=== PATIENT | male | born 1995 | race Caucasian/White ===

== ENCOUNTER 2022-02-28 11:42 | Emergency (ER) | payer OTHER, SELFPAY ==
--- NOTE | ~2022-02-28 | XR_ITS ---
XR knee RT min 4V DATE: 02/28/2022 13:13 INDICATION: Knee pain, starting yesterday, from [place] of stairs at work TECHNIQUE: 4 views COMPARISON: None FINDINGS: Moderate tricompartment osteoarthritis. No fracture or dislocation or joint effusion. No periosteal reaction or bone destruction. No radiopaq ue intra-articular loose body or chondrocalcinosis. IMPRESSION: Moderate tricompartment osteoarthritis Reviewed, dictated and finalized at location B. 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
[2022-02-28 12:24] VITALS: BP 125/74; PULSE 61; RESP 16; TEMP 36.6; O2SAT 100
--- NOTE | 2022-02-28 12:30 | ED.LOWEXIN ---
HPI - Extremity Injury (Lower) General Chief Complaint: Extremity Injury, Lower Stated Complaint: rt knee injury/work related Time Seen by Provider: 02/28/22 12:30 Source: patient Mode of arrival: ambulatory Limitations: no limitations History of Present Illness HPI Narrative: 26-year-old male presents with complaint of right knee pain for several days. Denies injury but feels that the pain is related to work. 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 Has not taking any [id number] medications to treat pain. ambulatory with steady gait. 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 All systems reviewed and negative except as noted above. Related Data Allergies Allergy/AdvReac Type Severity Reaction Status Date / Time No Known Allergies Allergy Verified 02/28/22 12:21 Review of Systems Review of Systems: CONSTITUTIONAL: Denies fever, chills, or sweats. EYES: Denies visual changes, redness, or discharge. ENT: Denies rhinorrhea, congestion, sore throat, or otalgia. CARDIOVASCULAR: Denies chest pain, palpitations, or edema. RESPIRATORY: Denies cough or dyspnea. GASTROINTESTINAL: Denies abdominal pain, nausea, vomiting, or diarrhea. GENITOURINARY: Denies dysuria or hematuria. SKIN: Denies rash or itching. MUSCULOSKELETAL: Reports right knee pain and swelling. NEUROLOGIC: Denies headache, numbness, or weakness. PSYCHIATRIC: Denies anxiety or depression. All other systems reviewed are negative, except as documented in HPI. PMFSH Comments At time of signature, agree with nursing past medical, surgical, social and family history. There is no relevant family history pertinent to the presenting complaint. Exam Narrative: GENERAL: This is a well-nourished, well-developed patient, in no apparent distress. HEAD: normocephalic, atraumatic. EYES: PERRL. Sclera clear/white. Vision is grossly intact. EARS: External ears normal NOSE: External nose normal NECK: Neck supple, non-tender without lymphadenopathy, masses or thyromegaly. CARDIOVASCULAR: Regular rate and rhythm without murmurs, gallops, or rubs. RESPIRATORY: Clear to auscultation. Breath sounds equal bilaterally. No wheezes, rales, or rhonchi. SKIN: warm, Dry, intact with no suspicious lesions or rash, good texture and turgor. NEURO: awake, alert, and oriented to person, place and time. There were no obvious focal neurologic abnormalities. EXTREMITIES: Generalized tenderness right anterior knee with mild swelling. No instability. Course Course Level of Care: Express Care Visit Vital Signs Vital signs: Vital Signs Temperature 36.6 C 02/28/22 12:24 Pulse Rate 61 02/28/22 12:24 Respiratory Rate 16 02/28/22 12:24 Blood Pressure 125/74 02/28/22 12:24 Pulse Oximetry 100 02/28/22 12:24 Oxygen Delivery Room Air 02/28/22 12:24 Temperature 36.6 C 02/28/22 12:24 Pulse Rate 61 02/28/22 12:24 Respiratory Rate 16 02/28/22 12:24 Blood Pressure 125/74 02/28/22 12:24 Pulse Oximetry 100 02/28/22 12:24 Oxygen Delivery Room Air 02/28/22 12:24 Reviewed MDM - Extremity Injury (Lower) MDM Narrative Medical decision making narrative: Patient is aware of diagnosis, understands and agrees to treatment plan. Anticipatory guidance given. Patient agrees to follow-up as directed and is aware of reasons to seek care at the emergency department. Portions of this record may have been created with voice recognition software discussed x-ray results with patient. Refer to primary care physician To establish primary care and further treat his right knee pain. Patient requesting Orthopedic referral. States that he needs it if he has a workmen comp case for his knee pain. Imaging Data My impression: Agree with radiologist Radiologist's impression: IMPRESSION: Mod
== END 2022-02-28 13:36 | disposition home or self-care (01) ==
PROVIDERS: Emergency Provider Nurse Practitioner Family
DX: M17.11 Unilateral primary osteoarthritis, right knee (principal)
CPT/HCPCS: 73564; 99203; G0463

== ENCOUNTER 2023-11-14 14:21 | Emergency (ER) | payer BC, SELFPAY ==
[2023-11-14 14:30] VITALS: BP 143/91; PULSE 87; RESP 16; TEMP 36.4; O2SAT 99
--- NOTE | 2023-11-14 14:34 | ED.URI ---
HPI - URI/Sore Throat General Chief Complaint: Upper Respiratory Infection Stated Complaint: sore throat/ fever / headache Time Seen by Provider: 11/14/23 14:34 History of Present Illness HPI Narrative: 27-year-old male presented for complaint of sore throat and fever up to 102. Onset 2 days. Endorses associated chills and body aches. Denies nausea vomiting, diarrhea or lethargy. Endorses exposure to strep. Took ibuprofen today. Related Data Allergies Allergy/AdvReac Type Severity Reaction Status Date / Time No Known Allergies Allergy Verified 11/14/23 14:34 Review of Systems Review of Systems: CONSTITUTIONAL: reports body aches, fever, chills, or sweats. EYES: Denies visual changes, redness, or discharge. ENT: reports sore throat Denies rhinorrhea, congestion, or otalgia. CARDIOVASCULAR: Denies chest pain, palpitations, or edema. RESPIRATORY: Denies dyspnea. GASTROINTESTINAL: Denies abdominal pain, nausea, vomiting, or diarrhea. SKIN: Denies rash, itching, or wounds. MUSCULOSKELETAL: Denies back pain, joint pain NEUROLOGIC: Denies headache Exam Narrative: GENERAL: mildly Ill-appearing, no acute distress. EYES: conjunctivae clear ENT: Mucous membranes moist. Left TM pearly jimenez with normal light reflex; Right TM erythematous, intact; no tragal tenderness. Oropharynx severely erythematous Tonsils enlarged 2+ with exudate. No drooling, no hoarseness, no trismus, uvula midline. No tripod positioning, hot potato voice, or soft palate swelling. NECK: Supple. bilateral anterior cervical lymphadenopathy CHEST: Clear to auscultation, breath sounds equal. No respiratory distress, speaks in full sentences. HEART: Regular rate and rhythm. No murmur heard. SKIN: Warm, dry, no rash. NEURO: Alert and oriented x3. Course Course Emergency Course: Patient is aware of diagnosis, understands and agrees to treatment plan. Anticipatory guidance given. Patient agrees to follow-up as directed and is aware of reasons to seek care at the emergency department. Portions of this record may have been created with voice recognition software Level of Care: Express Care Visit MDM - URI/Sore Throat MDM Narrative Medical decision making narrative: POS strep result reviewed with pt. Advise supportive treatments. Patient is appropriate for outpatient treatment and follow-up. Differential Diagnosis Differential diagnosis: Likely upper respiratory infection, viral infection and pharyngitis Discharge Plan Discharge Clinical Impression: Strep pharyngitis Patient Disposition: Home, Self-Care Condition: Stable Instructions: Antibiotic Form, Strep Throat (ED) Additional Instructions: - Take the antibiotic as directed. Fever and sore throat typically resolve within one to three days. Most patients can return to work after 12 to 24 hours of antibiotic therapy, provided you are fever free and otherwise well. -Eat and drink things that are easy to swallow, like soft foods, cool liquids, tea with honey, or popsicles . -Salt water gargles and/or may use topical anesthetic ( Chloraseptic spray) or lozenges to relieve dryness or throat pain -Alternate Tylenol and ibuprofen as needed for pain and fever as directed. -Frequent hand washing or hand pump installation and servicer is one of the best ways to prevent spread of infection. Throw away the toothbrush after 24hours of antibiotic. -Follow up with primary care provider in 2-3 days if condition is not improving -Go to the ER if you have trouble breathing, cannot drink enough fluids, have muffled voice or drooling, difficulty opening your mouth, or severe swelling. Prescriptions: New amoxicillin 500 mg tablet 1,000 mg PO DAILY 10 Days Qty: 20 0RF Follow-up/Referrals: PHYSICIAN,EVENT SALES ASSISTANT [Primary Care Provider] - Stand Alone Forms: Work/School Release IP Time of Disposition: 14:41
[2023-11-14 14:37] LABS: EDSTREPNEGPOS1 Negative
== END 2023-11-14 14:43 | disposition home or self-care (01) ==
PROVIDERS: Emergency Provider Nurse Practitioner Family
DX: J02.0 Streptococcal pharyngitis (principal)
CPT/HCPCS: 87880; 99213; G0463

== ENCOUNTER 2024-04-04 11:15 | Emergency (ER) | payer OTHER, SELFPAY ==
[2024-04-04 11:23] VITALS: BP 147/75; PULSE 104; RESP 20; TEMP 37.8; O2SAT 95
[2024-04-04 11:47] LABS: EDCOVIDSCREEN Negative (Negative); EDINFLUASCREEN Negative (Negative); EDINFLUBSCREEN Negative (Negative)
--- NOTE | 2024-04-04 12:22 | ED_ITS ---
HPI - General Adult General Chief complaint: Upper Respiratory Infection Stated complaint: fever 101, body aches Source: patient Mode of arrival: ambulatory Limitations: no limitations History of Present Illness HPI narrative: Patient presents for evaluation of a fever since midnight. He denies any chills, nausea, vomiting, diarrhea, cough, wounds, open lesions, urinary symptoms, shortness of breath, otalgia or sore throat. His girlfriend and child both have an ear infection. He is not taking any medication to assist with the symptoms Related Data Allergies Allergy/AdvReac Type Severity Reaction Status Date / Time bee venom protein (honey bee) Allergy Unknown Unknown Verified 04/04/24 11:30 Review of Systems Review of Systems: CONSTITUTIONAL: Reports fever. Denies chills, or sweats. EYES: Denies visual changes, redness, or discharge. ENT: Denies rhinorrhea, congestion, sore throat, or otalgia. CARDIOVASCULAR: Denies chest pain, palpitations, or edema. RESPIRATORY: Denies cough or dyspnea. GASTROINTESTINAL: Denies abdominal pain, nausea, vomiting, or diarrhea. GENITOURINARY: Denies dysuria or hematuria. SKIN: Denies rash or itching. MUSCULOSKELETAL: Denies back pain, joint pain, or myalgia. NEUROLOGIC: Denies headache, numbness, dizziness, or weakness. PSYCHIATRIC: Denies anxiety or depression. [facility] Past Medical History Medical History (Reviewed 04/04/24 @ 12:25 by John Keen, [facility], ) No pertinent past medical history Surgical History Surgical History (Reviewed 04/04/24 @ 12:25 by John Keen, [facility], ) No pertinent past surgical history Family History Family History (Reviewed 04/04/24 @ 12:26 by John Keen, [facility], ) Mother Family history non-contributory Social History Social History (Reviewed 04/04/24 @ 12:26 by John Keen, [facility], ) Living arrangements: with family Gender identity (if verbalized by the patient): Male Sexual Orientation (if Verbalized by the Patient): Straight or Heterosexual Spiritual care concerns: No Exam Narrative: GENERAL: Well-appearing, well-nourished, and in no acute distress. HEAD: Normocephalic, atraumatic. EYES: PERRLA and EOMI. ENT: Nares clear, no rhinorrhea or epistaxis. Mucous membranes moist. Oropharynx without tonsillar hypertrophy exudate or other lesions. Bilateral tympanic membranes are erythematous and bulging NECK: Supple. No adenopathy or masses. No carotid bruits or JVD CHEST: Clear to auscultation. No respiratory distress. No wheezes rales or rhonchi HEART: Regular rate and rhythm. No murmur heard. Normal peripheral pulses. ABDOMEN: Soft, nontender, nondistended, normal active bowel sounds. EXTREMITIES: Normal range of motion. No edema. SKIN: Warm, dry, no rash. NEURO:Negative Brudzinski and Kernig's signs. No focal deficits. Alert and oriented x3. PSYCH: Normal mood and affect. Course Course Emergency Course: This is a 28-year-old male who presented for evaluation of a fever. He has evidence of otitis media on exam. Will treat with Augmentin. Increase hydration. [id number] agents for symptom management. Follow up with primary provider. Go to the ER for worsening symptoms. Patient in agreement with plan of care. Level of Care: Express Care Visit Vital Signs Vital signs: Vital Signs Temperature 37.8 C H 04/04/24 11:23 Pulse Rate 104 H 04/04/24 11:23 Respiratory Rate 04/04/24 11:23 Blood Pressure 147/75 H 04/04/24 11:23 Pulse Oximetry 04/04/24 11:23 Oxygen Delivery Room Air 04/04/24 11:23 Temperature 37.8 C H 04/04/24 11:23 Pulse Rate 104 H 04/04/24 11:23 Respiratory Rate 04/04/24 11:23 Blood Pressure 147/75 H 04/04/24 11:23 Pulse Oximetry 04/04/24 11:23 Oxygen Delivery Room Air 04/04/24 11:23 Medical Decision Making Vital Signs Vital Signs: Vital Signs Temperature 37.8 C H 04/04/24 11:23 Pulse Rate 104 H 04/04/24 11:23 Respiratory Rate 04/04/24 11:23 Blood Pressure 147/75 H 04/04/24 11:23 Pulse Oximetry 04/04/24 11:23 Oxygen Delivery Room Air 04/04/24 11:23 Temperature 37.8 C H 04/04/24 11:23 Pulse Rate 104 H 04/04/24 11:23 Respiratory Rate 20 04/04/24 11:23 Blood Pressure 147/75 H 04/04/24 11:23 Pulse Oximetry 95 04/04/24 11:23 Oxygen Delivery Room Air 04/04/24 11:23 Lab Data Labs: Lab Results 04/04/24 Range/Units 11:45 POC Influenza A Ag Negative (Negative) POC Influenza B Ag Negative (Negative) POC SARS CoV-2 Ag Negative (Negative) Discharge Plan Discharge Clinical Impression: Otitis media Patient Disposition: Home, Self-Care Condition: Stable Instructions: Antibiotic Form, Ear Infection (ED) Patient Language: Rw[place]an Prescriptions: New amoxicillin-pot clavulanate 875-125 mg tablet 1 tablet PO Q12H Qty: 20 0RF Follow-up/Referrals: Eric Arias MD [Physician] - Time of Disposition: 12:08
== END 2024-04-04 12:12 | disposition home or self-care (01) ==
PROVIDERS: Emergency Provider Nurse Practitioner
DX: H66.93 Otitis media, unspecified, bilateral (principal); Z20.822 Contact with and (suspected) exposure to COVID-19
CPT/HCPCS: 87426; 87804; 99213; G0463